=== PATIENT | male | born 1930 | race Caucasian/White ===

== ENCOUNTER 2016-07-17 15:23 | Emergency (ER) | payer OTHER ==
--- NOTE | ~2016-07-17 | CR72 ---
[facility] A Service of [facility] & [facility] RADIOLOGY TEXT RESULTS PATIENT: SERGIO LOONEY LOCATION: [facility] : [birth year] UNIT #: [id number] AGE: [address]: Kayla Malagon MD SEX: M ORDER DR: [id number] [facility] [address] [place], [place] [address] [id number] MR#: [id number] Acc #: [id number] NAME: SERGIO LOONEY. : 1930 SEX: M STUDY DATE/TIME: 07/17/2016 15:47 UNIT: [facility] ROOM: STUDY DESCRIPTION: CR Chest Single View Portable Attending Physician: Kayla Malagon M.D. Ordering Physician: Kayla Malagon M.D. Primary Care Physician: Kristie Zarco M.D. MEDICAL IMAGING REPORT This report is preliminary unless electronic signature is present EXAM Portable chest 07/17/2016 HISTORY 85-year-old male with chest pain radiating to the left arm beginning yesterday. COMPARISON STUDIES None FINDINGS Frontal chest demonstrates mild elevation right hemidiaphragm. Lungs are otherwise clear. Heart size is upper limits. Mediastinum and pulmonary vasculature unremarkable. Median sternotomy wires. IMPRESSION No acute cardiopulmonary findings. Dictated by... Chuck Hsu M.D. THIS IS AN ELECTRONICALLY VERIFIED REPORT Chuck Hsu M.D. at 07/18/2016 5:01 PM Griffin TD: 07/17/2016 17:34 JOB #: [id number] MEDICAL IMAGING REPORT Page 1 of 1 COPY
--- NOTE | ~2016-07-17 | EKG ---
PATIENT: SERGIO LOONEY UNIT #: [id number] Ventricular Rate: 60 BPM Atrial Rate: 60 BPM P-R Interval: 172 ms QRS Duration: 106 ms Q-T Interval: 412 ms QTC Calculation(Bezet): 412 ms P [place]: 54 degrees Calculated R [place]: 14 degrees Calculated T [place]: 48 degrees Diagnosis Line: Normal sinus rhythm Diagnosis Line: Inferior infarct (cited on or before 09-OCT-2013) Diagnosis Line: Abnormal ECG Diagnosis Line: When compared with ECG of 09-OCT-2013 17:35, Diagnosis Line: No significant change was found Diagnosis Line: Confirmed by WILDER ZHOU MD ([id number]) on 07/18/2016 Diagnosis Line: 5:44:45 AM INTERPRETING MD: WINNIE FRANK
[2016-07-17 14:17] LABS: BASOPHIL% 0.3 % (0-2.5); EOSINOPHIL# 0.2 X10e3 (0-0.7); EOSINOPHIL% 4.2 % (0.0-7.0); HEMATOCRIT 47.5 % (38.0-50.0); HEMOGLOBIN 15.7 gm/dL (13.0-16.0); LYMPHOCYTE# 1.4 X10e3 (1.0-3.5); LYMPHOCYTE% 26.7 % (17.0-45.0); MEAN CELL VOLUME 89.4 FL (83-96); MEAN CORPUSCULAR HEMOGLOBIN 29.6 PG (28-34); MEAN CORPUSCULAR HGB CONC 33.1 g/dL (30-36); MEAN PLATELET VOLUME 7.5 FL (6.5-11.5); MONOCYTE# 0.5 X10e3 (0-1.0); MONOCYTE% 9.8 % (3.0-12.0); PLATELET COUNT 109 X10e3 (140-420); RED BLOOD COUNT 5.31 X10e (3.90-5.60); RED CELL DISTRIBUTION WIDTH 14.5 % (11.0-15.5); WHITE BLOOD COUNT 5.2 X10e3 (4.0-10.5)
[2016-07-17 14:29] LABS: DIFF IND NO
[2016-07-17 14:40] LABS: ALBUMIN SERUM 4.1 g/dL (3.5-5.0); BILIRUBIN, DIRECT 0.1 mg/dL (0.0-0.2); BILIRUBIN,INDIRECT 0.6 mg/dL (0.0-0.9); BILIRUBIN,TOTAL 0.7 mg/dL (0.2-2.0); CALCIUM SERUM 8.8 mg/dL (8.4-10.2); CREATININE SERUM 1.7 mg/dL (0.6-1.4); GLOM FILT RATE Estimated 35.5 mL/min (>60); POTASSIUM 4.2 mmol/L (3.5-5.1); PROTEIN TOTAL SERUM 7.3 g/dL (6.0-8.3)
[~2016-07-17 15:23] MED LIST: ATORVASTATIN CA10 MG PO; CARAFATE1 G PO; LOW DOSE ASPIRI81 M1 PO; PANTOPRAZOLE SO40 MG PO; TOPROL XL100 MG PO; ZYLOPRIM100 MG PO
[2016-07-17 15:34] LABS: POC - CKMB 1.8 ng/mL (0.0-7.9); POC - TROPONIN <0.05 ng/mL (<=0.05)
[2016-07-17 16:28] LABS: POC - CKMB 1.4 ng/mL (0.0-7.9); POC - TROPONIN <0.05 ng/mL (<=0.05)
== END 2016-07-17 16:40 | disposition home or self-care (01) ==
LOC: CED 15:23
PROVIDERS: Emergency Medicine; Student in an Organized Health Care Education/Training Program
DX: R07.89 Other chest pain (principal); I12.9 Hypertensive chronic kidney disease with stage 1 through stage 4 chronic kidney disease, or unspecified chronic kidney disease; N18.9 Chronic kidney disease, unspecified; K21.9 Gastro-esophageal reflux disease without esophagitis; Z88.0 Allergy status to penicillin; Z79.899 Other long term (current) drug therapy; Z87.891 Personal history of nicotine dependence
CPT/HCPCS: 36415; 71010; 80048; 80076; 82553; 84484; 85025; 93005; 99284

== ENCOUNTER 2016-07-21 16:25 | Inpatient (IN) | payer MEDICARE, OTHER ==
--- NOTE | ~2016-07-21 | EKG ---
PATIENT: SERGIO LOONEY UNIT #: [id number] Ventricular Rate: 83 BPM Atrial Rate: 83 BPM P-R Interval: 196 ms QRS Duration: 116 ms Q-T Interval: 392 ms QTC Calculation(Bezet): 460 ms P [place]: 42 degrees Calculated R [place]: 12 degrees Calculated T [place]: 39 degrees Diagnosis Line: Normal sinus rhythm Diagnosis Line: Possible Left atrial enlargement Diagnosis Line: Inferior infarct (cited on or before 09-OCT-2013) Diagnosis Line: Abnormal ECG Diagnosis Line: When compared with ECG of 21-JUL-2016 19:53, Diagnosis Line: Criteria for Septal infarct are no longer Present Diagnosis Line: Nonspecific T wave abnormality, worse in Inferior Diagnosis Line: leads Diagnosis Line: Confirmed by WILDER ZHOU MD ([id number]) on 07/24/2016 Diagnosis Line: 10:14:31 PM INTERPRETING MD: WINNIE FRANK
--- NOTE | ~2016-07-21 | HP ---
Unit #: [id number] #: [id number] Patient: SERGIO LOONEY [id number] [address] [place], [place] [address] [id number] I MR#: [id number] NAME: SERGIO LOONEY. ROOM: 551 Age: 85 Sex: M Admission Date: 07/21/2016 : 1930 Attending Physician: Jesus Hannah M.D. Primary Care Physician: Kristie Zarco M.D. HISTORY AND PHYSICAL CHIEF COMPLAINT Chest pain. HISTORY OF PRESENT ILLNESS Mr. Looney is an 85-year-old white male known to have hypertension and coronary artery disease. In 2002, he underwent three-vessel coronary artery bypass graft surgery and had done reasonably well. His a year and a half ago and he has been responsible for taking care of his household and doing everything at home. He came to the emergency room on 07/17/2016 with chest discomfort which started while he was sitting around at home, described as pressure as pressure and heaviness in the mid sternal area radiating to both sides of the chest associated with dyspnea and mild nausea but he did not have any radiation of the pain to the neck, jaw, back, and there was no associated palpitations, dizziness, lightheadedness, syncope or near syncope. He came to the emergency room where initial lab investigation showed no evidence of an WA and EKG showed no ischemia and was sent home. Yesterday, sitting at home again he had recurrence of this chest discomfort which lasted for 15 to 30 minutes and he became concerned. He took sublingual nitroglycerin with relief of pain. He denied any accompanying palpitations, dizziness, lightheadedness, syncope or near syncope. Patient denies any history of previous WA, stroke, or transient ischemic attacks. He denies any recent diplopia, amaurosis fugax, nocturnal dyspnea, orthopnea, leg edema. There is no history of weight loss, syncope or near syncope. PAST MEDICAL HISTORY 1. No history of diabetes mellitus or hyperlipidemia. 2. No history of previous WA. 3. No history of abdominal aortic aneurysm. PAST SURGICAL HISTORY Previous coronary artery bypass surgery 2002. SOCIAL HISTORY Stopped smoking 30 years ago. FAMILY HISTORY Positive for coronary artery disease. PHYSICAL EXAMINATION GENERAL: Elderly male, well preserved for his age. He is in no acute cardiorespiratory distress. NECK: Both carotids have a normal upstroke without any bruits, there is no ankle edema. There is no jugular venous distention is noted. Unit #: [id number] #: [id number] Patient: SERGIO LOONEY HEART: Apical impulse is palpable in the fifth intercostal space in midclavicular line and is normal, both heart sounds are normal. No rubs or clicks are audible. There is no murmur. LUNGS: Good air entry bilaterally without any rales or rhonchi. ABDOMEN: No hepatosplenomegaly, free fluid, or masses. RECTAL: Not done. NEUROLOGIC: Within normal limits. DIAGNOSTIC STUDIES LABORATORY: Labs done in the emergency room 3 days ago showed normal renal function, normal electrolytes. Cardiac enzymes were normal. IMAGING: Chest x-ray was normal 3 days ago. DIAGNOSES 1. Unstable angina pectoris. 2. 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 3. Paroxysmal atrial fibrillation. 4. Status post three-vessel coronary bypass surgery 2002. PLAN Patient's rhythm strips since admission to the hospital today have shown runs of paroxysmal atrial fibrillation spontaneously converting to normal sinus rhythm. This despite being on beta blockers. I will start small dose of amiodarone to maintain normal sinus rhythm. Because of rest angina pectoris, 14 years post bypass graft surgery, he was advised to consider a cardiac catheterization to which he agrees. Catheterization will be performed on 07/24/2016. Procedure and risks are discussed with him. Dictated by Lizbeth Rosario/dalila TD: 07/21/2016 19:02 JOB #: [id number] HISTORY AND PHYSICAL Page 1 of 1 X Jesus Hannah MD HISTORY AND PHYSICAL
--- NOTE | ~2016-07-21 | CO ---
Unit #: [id number] #: [id number] Patient: SERGIO LOONEY [id number] [address] [place], [place] [address] [id number] I MR#: [id number] NAME: SERGIO LOONEY. ROOM: 551 Age: 86 Sex: M Admission Date: 07/21/2016 : 1930 Attending Physician: Jesus Hannah M.D. Primary Care Physician: Kristie Zarco M.D. Consultation Date: 07/22/2016 CONSULTATION REPORT REASON FOR CONSULTATION Chronic kidney disease. HISTORY OF PRESENT ILLNESS Mr. Looney is a very pleasant 85-year-old gentleman, who presented to the hospital with chest pain and has been found to have unstable angina. He has known history of coronary artery disease, having undergone a CABG back in 2002. He also has some underlying hypertension. He does see his primary care doctor regularly, but has never been told of any kidney problems. He denies any urinary complaints. There are no issues with swelling or shortness of breath. His chest pain is gone. He does not use any NSAIDs at home. He has no history of kidney stones. He feels quite well this afternoon. PAST MEDICAL HISTORY Significant for coronary artery disease, chronic kidney disease, GERD, hyperlipidemia, hyperuricemia. PAST SURGICAL HISTORY He has had a CABG. CURRENT MEDICATIONS Baby aspirin daily, metoprolol tartrate 50 mg twice a day, nitroglycerin ointment, Lovenox 80 mg subcu every 12 hours, allopurinol 100 mg, Lipitor 20 mg at bedtime, Protonix 40 mg a day, sucralfate 2 g every evening, and amiodarone 200 mg a day. ALLERGIES He has a coded allergy to penicillin. FAMILY HISTORY Significant for family history of coronary artery disease. There is no family history of kidney problems or dialysis. SOCIAL HISTORY The patient quit smoking many years ago. There is no alcohol or drug abuse. REVIEW OF SYSTEMS A complete 12-point review of systems was completed with the above findings. In addition, he denies any headaches or dizziness. No nosebleed, sore throat, or earache. No palpitations. No cough or hemoptysis. No nausea or vomiting. No diarrhea. No bright red blood per rectum or melena. No dysuria. No hematuria. No rashes. No itching. No Unit #: [id number] #: [id number] Patient: SERGIO LOONEY flank pain. No fevers. No chills. No night sweats or hot flashes. No intolerance to heat or cold. No bleeding issues. No recent weight changes. Unless otherwise indicated, the review of systems was negative. PHYSICAL EXAMINATION VITAL SIGNS: The patient is afebrile, pulse 60, respiratory rate 18, and blood pressure 121/57. GENERAL: This is a pleasant 85-year-old male, sitting up in a chair, alert in no distress. HEENT: Head is atraumatic and normocephalic. Eyes show pink conjunctivae with no scleral icterus. No nasal drainage or nosebleed. Oropharynx is moist. No thrush. NECK: No rigidity. No JVD. HEART: Regular rate and rhythm with no murmurs, gallops, or rubs appreciated. LUNGS: Clear with no wheezing or rhonchi. Breathing is nonlabored. ABDOMEN: Soft, nontender, and nondistended. Bowel sounds are present. No abdominal bruits heard. EXTREMITIES: No lower extremity clubbing, cyanosis, or edema. SKIN: Dry with no rashes. MUSCULOSKELETAL: No CVA tenderness to palpation. NEUROLOGIC: No gross neurologic deficits. LYMPHATICS: There is no neck or cervical lymphadenopathy. PSYCHIATRIC: Mood and affect appear normal. DIAGNOSTIC STUDIES LABORATORY RESULTS: Cholesterol readings are good. Chemistry yesterday noteworthy for a creatinine of 1.7. CK was 66. Troponin less than 0.03. CBC was remarkable only for a slightly elevated hemoglobin of 16.5, platelet count was slightly low at 128. On the 07/17/2016, his creatinine was 1.7 as well with a normal albumin. CBC showed a low platelet count of 109 at that time as well. Prior to that, creatinine going all the way back to 2013, ran between 1.6 and 1.8. Previous urinalysis in September 2013 was negative for blood and protein. IMAGING STUDIES: Chest x-ray was read as negative. I did find an abdominal ultrasound from 09/2013, that showed an 8.6 cm right kidney, 9.7 cm left kidney, and a 2-cm cyst on the left. He also had a CT angiogram of his abdomen in September of 2013. There was also seen an exophytic 2-cm cyst on the left kidney, and they did do an arteriogram, showing bilateral single renal arteries with mild disease. ASSESSMENT AND PLAN 1. Chronic kidney disease, stage 3. This looks to be long-standing and stable. With his previous plain urinalysis, I suspect this is related to hypertensive nephrosclerosis and small vessel atherosclerotic disease. I will be checking a urinalysis for evaluation as well as checking his phosphorus and parathyroid hormone levels. He should be okay for heart catheterization on Sunday, and I will start some Mucomyst in the morning, and we will do a fluid prep overnight. 2. Hypertension. The patient's blood pressure is reasonable at this time on his Toprol, which we will continue. 3. Hyperuricemia. I will be checking a uric acid level to be sure he needs to stay on his allopurinol considering his thrombocytopenia. 4. History of coronary artery disease with previous coronary artery bypass graft and unstable angina with catheterization planned for Sunday. 5. History of paroxysmal atrial fibrillation, now in sinus. Unit #: [id number] #: [id number] Patient: SERGIO LOONEY We would like to thank Dr. Hannah for this consult and the opportunity to participate in evaluation and care of Mr. Looney. Dictated by... Tarun Cagle Jr., MJair. SABRINA/gisela TD: 07/23/2016 04:20 JOB #: [id number] CONSULTATION REPORT Page 1 of 1 X Tarun Cagle MD X CONSULTATION REPORT
--- NOTE | ~2016-07-21 | EKG ---
PATIENT: SERGIO LOONEY UNIT #: [id number] Ventricular Rate: 82 BPM Atrial Rate: 82 BPM P-R Interval: 176 ms QRS Duration: 112 ms Q-T Interval: 366 ms QTC Calculation(Bezet): 427 ms P [place]: 33 degrees Calculated R [place]: 3 degrees Calculated T [place]: 53 degrees Diagnosis Line: Normal sinus rhythm Diagnosis Line: Possible Left atrial enlargement Diagnosis Line: Non-specific intra-ventricular conduction delay Diagnosis Line: Inferior infarct (cited on or before 09-OCT-2013) Diagnosis Line: Abnormal ECG Diagnosis Line: When compared with ECG of 17-JUL-2016 13:32, Diagnosis Line: No significant change was found Diagnosis Line: Confirmed by AMINAH ORNELAS MD ([id number]) on Diagnosis Line: 07/22/2016 6:54:10 AM INTERPRETING MD: SARAH
--- NOTE | ~2016-07-21 | US77 ---
[facility] A Service of [facility] RADIOLOGY TEXT RESULTS PATIENT: SERGIO LOONEY LOCATION: [facility] 53 : [birth year] UNIT #: [id number] AGE: [address]: Jesus Hannah MD SEX: M ORDER DR: [id number] [facility] [address] [place], [place] [address] [id number] I MR#: [id number] #: [id number] NAME: SERGIO LOONEY. : 1930 SEX: M STUDY DATE/TIME: 07/25/2016 8:39 UNIT: [facility] ROOM: [facility] STUDY DESCRIPTION: US Kidney Bilateral Complete Attending Physician: Jesus Hannah M.D. Ordering Physician: Tarun Cagle Jr., M.D. Primary Care Physician: Kristie Zarco M.D. MEDICAL IMAGING REPORT This report is preliminary unless electronic signature is present EXAM Renal ultrasound. DATE OF EXAM 07/25/2016 HISTORY Chronic kidney disease, stage 3. Abnormal renal function tests today. Elevated BUN 22, elevated creatinine of 1.8, abnormally low GFR of 32.9. FINDINGS The right kidney measures 8.8 cm, while the left kidney measures 9.9 cm in longitudinal dimensions. There is no evidence of hydronephrosis or nephrolithiasis. There are bilateral renal cysts. No solid mass lesions are identified. There is normal renal cortical echogenicity. Images of the bladder are normal. IMPRESSION 1. Bilateral renal cysts. No evidence of hydronephrosis. 2. Images of the bladder are normal. Dictated by... Jeffrey Peters M.D. THIS IS AN ELECTRONICALLY VERIFIED REPORT Jeffrey Peters M.D. at 07/26/2016 8:04 AM LIZ/natalio TD: 07/25/2016 17:17 [facility] A Service of [facility] RADIOLOGY TEXT RESULTS PATIENT: SERGIO LOONEY LOCATION: [facility] : [birth year] UNIT #: [id number] AGE: [address]: Jesus Hannah MD SEX: M ORDER DR: JOB #: [id number] MEDICAL IMAGING REPORT Page 1 of 1 COPY
--- NOTE | ~2016-07-21 | DS ---
Unit #: [id number] #: [id number] Patient: SERGIO LOONEY [id number] [facility] [address] [place], [place] [address] [id number] I MR#: [id number] NAME: SERGIO LOONEY. ROOM: 551 Age: 86 Sex: M Admission Date: 07/21/2016 : 1930 Discharge Date: 07/25/2016 Attending Physician: Jesus Hannah M.D. Primary Care Physician: Kristie Zarco M.D. DISCHARGE SUMMARY DISCHARGE DIAGNOSES 1. Chest pain with initial concern for unstable angina, ruled out for myocardial infarction. 2. Coronary artery disease, status post left cardiac catheterization on July 24, [address] [facility] [address] Hannah. Revealed left main normal. Proximal left anterior descending coronary artery 100%. Left circumflex normal. Right coronary artery 100%. Left internal mammary artery to the left anterior descending coronary artery patent with distal vessel normal. Saphenous vein graft to diagonal patent with distal vessel normal. Saphenous vein graft to distal right coronary artery patent with distal vessel normal. No left ventriculogram due to renal function. Medical management. 3. A 2D echocardiogram, January 14, 2015, revealed an ejection fraction of 50% to 55%. Mild asymmetric left ventricular hypertrophy. Impaired left ventricular relaxation. Mild mitral annular calcification. Mild mitral regurgitation. Mild tricuspid regurgitation. Right ventricular systolic pressure 40-50 mmHg consistent with indmobeg-wi-kakojo pulmonary hypertension. Aortic valve leaflet sclerotic with no stenosis. No pericardial effusion. 4. Coronary artery disease with history of coronary artery bypass grafting x3 in 2000. 5. Hypertension. 6. Hyperlipidemia. 7. Chronic kidney disease. 8. Gastroesophageal reflux disease. 9. History of gout. 10. Chronic thrombocytopenia. 11. Paroxysmal atrial fibrillation, now in sinus rhythm. 12. Nonsustained ventricular tachycardia, four beats. The patient was started on Xarelto after the cardiac catheterization due to episodes of paroxysmal atrial fibrillation. The cost of Xarelto has been checked with renal case manager and is affordable. DISCHARGE MEDICATIONS 1. Flomax 0.4 mg p.o. daily. 2. Amiodarone 200 mg p.o. daily. 3. Metoprolol tartrate 50 mg p.o. b.i.d. 4. Lipitor 20 mg p.o. nightly. 5. Carafate 1 g p.o. daily with 2 g p.o. in the evening. 6. Allopurinol per home dosing. 7. Aspirin 81 mg p.o. daily. 8. Protonix per home dosing. Unit #: [id number] #: [id number] Patient: SERGIO LOONEY 9. Imdur ER 30 mg p.o. daily. 10. Nitroglycerin 0.4 mg sublingual every five minutes x3 p.r.n. for chest pain. 11. Xarelto 15 mg p.o. daily. DIAGNOSTIC STUDIES LABORATORY: White blood cell count 5, hemoglobin 14.4, hematocrit 43.7, platelets 123,000. Sodium 139, potassium 4.1, chloride 103, CO2 of 28, BUN 28, creatinine 2.1, glucose 83. Troponin 0.03 and 0.03. Total cholesterol 120, triglycerides 111, LDL 59, HDL 39. UA with 5-10 red blood cells, otherwise negative. IMAGING: Chest x-ray reveals no acute findings. Ultrasound of bilateral kidneys reveal bilateral renal cyst. No evidence of hydronephrosis. Images of the bladder normal. [employer] Dr. Cagle with nephrology. PHYSICAL EXAMINATION VITAL SIGNS: Temperature 98.7, pulse 72, blood pressure 119/75. CONSTITUTIONAL: This is an 85-year-old white male in no acute distress. SKIN: Warm and dry. NECK: Supple. No jugular vein distention. No hepatojugular reflux. Normal carotid upstrokes. No carotid bruits auscultated. HEART: S1, S2. Regular rate and rhythm. No murmurs, rubs, or gallops. LUNGS: Bilateral breath sounds have good air entry through all lung renteria. Respirations even and nonlabored. No rales, rhonchi, or wheezes. ABDOMEN: Soft, nontender, nondistended. Positive bowel sounds auscultated x4 quadrants. No ascites noted. EXTREMITIES: Bilateral lower extremities have no pretibial pitting edema. DP and PT pulses 2+. Capillary refill less than 3 seconds. Calf site is soft without hematoma. DISCHARGE INSTRUCTIONS 1. The patient will be discharged home today. 2. Followup with Dr. Hannah on January 23, 2017 at 1:15 p.m. 3. Followup with primary care provider in one to two weeks. 4. Followup with nephrology in two to four weeks. 5. Post cath instructions provided. 6. The patient has been advised to call our office with further symptoms. 7. He has been started on oral amiodarone to help maintain sinus rhythm and his beta saskia has been adjusted. The cost of Xarelto has been approved and initiated. Dictated by... Nancy Hernandez APRN for Lizbeth Rosario TD: 07/27/2016 11:12 JOB #: [id number] Unit #: [id number] #: [id number] Patient: SERGIO LOONEY DISCHARGE SUMMARY Page 1 of 1 X X DISCHARGE SUMMARY
[2016-07-21] MEDS ORDERED: TOPROL XL (17:25)
[2016-07-21] MEDS ORDERED: ZYLOPRIM PO (17:25)
[2016-07-21] MEDS ORDERED: CARAFATE PO (17:25)
[2016-07-21] MEDS ORDERED: LIPITOR PO (17:25)
[2016-07-21] MEDS ORDERED: PROTONIX (17:25)
[2016-07-21 20:05] LABS: BASOPHIL% 0.2 % (0-2.5); EOSINOPHIL# 0.2 X10e3 (0-0.7); EOSINOPHIL% 2.6 % (0.0-7.0); HEMATOCRIT 49.3 % (38.0-50.0); HEMOGLOBIN 16.5 gm/dL (13.0-16.0); LYMPHOCYTE# 1.8 X10e3 (1.0-3.5); LYMPHOCYTE% 21.7 % (17.0-45.0); MEAN CELL VOLUME 88.9 FL (83-96); MEAN CORPUSCULAR HEMOGLOBIN 29.8 PG (28-34); MEAN CORPUSCULAR HGB CONC 33.5 g/dL (30-36); MEAN PLATELET VOLUME 7.4 FL (6.5-11.5); MONOCYTE% 12.4 % (3.0-12.0); NEUTROPHIL# 5.3 X10e3 (1.5-7.1); NEUTROPHIL% 63.1 % (40-75); PLATELET COUNT 128 X10e3 (140-420); RED BLOOD COUNT 5.54 X10e (3.90-5.60); RED CELL DISTRIBUTION WIDTH 14.1 % (11.0-15.5); WHITE BLOOD COUNT 8.4 X10e3 (4.0-10.5)
[2016-07-21 20:07] LABS: DIFF IND NO
[2016-07-21 20:36] LABS: BUN/CREATININE RATIO 10.58; CALCIUM SERUM 8.4 mg/dL (8.4-10.2); CREATININE SERUM 1.7 mg/dL (0.6-1.4); GLOM FILT RATE Estimated 35.5 mL/min (>60); MAGNESIUM 2.2 mg/dL (1.6-3.0)
[2016-07-21 20:54] LABS: %MB 4.7 % (0.0-4.0); MB 3.1 ng/ml
[2016-07-22 07:28] LABS: CHOLESTEROL 120 mg/dL (0-200); HDL CHOLESTEROL 39 mg/dL (29-75); LDL CHOLESTEROL 59 mg/dL ([, -130]); LDL/HDL RATIO 2 RATIO (0-4); TRIGLYCERIDES 111 mg/dL (10-160)
[2016-07-22 21:30] LABS: URINE BILIRUBIN NEG (NEG); URINE BLOOD TRACE (NEG); URINE COLOR DK YELLOW; URINE GLUCOSE NEG (NEG); URINE KETONE TRACE (NEG); URINE LEUKOCYTE ESTERASE NEG (NEG); URINE NITRATE NEG (NEG); URINE PROTEIN NEG (NEG); URINE SPECIFIC GRAVITY 1.022 (1.003-1.035)
[2016-07-22 21:32] LABS: URINE BACTERIA AUWI NEG (NEGATIVE); URINE SQUAMOUS EPITHELIAL CELL NONE SEEN /[HPF]; UWBCS1 AUWI 0-2 (0-5)
[2016-07-23 06:56] LABS: BUN/CREATININE RATIO 12.63; CALCIUM SERUM 8.7 mg/dL (8.4-10.2); CREATININE SERUM 1.9 mg/dL (0.6-1.4); GLOM FILT RATE Estimated 30.8 mL/min (>60); PHOSPHOROUS 2.9 mg/dL (2.5-4.6); POTASSIUM 3.9 mmol/L (3.5-5.1); URIC ACID 5.1 mg/dL (2.6-7.2)
[2016-07-24 05:12] LABS: HEMATOCRIT 43.7 % (38.0-50.0); HEMOGLOBIN 14.4 gm/dL (13.0-16.0); MEAN CELL VOLUME 89.2 FL (83-96); MEAN CORPUSCULAR HEMOGLOBIN 29.4 PG (28-34); MEAN CORPUSCULAR HGB CONC 32.9 g/dL (30-36); MEAN PLATELET VOLUME 7.5 FL (6.5-11.5); RED BLOOD COUNT 4.9 X10e (3.90-5.60); RED CELL DISTRIBUTION WIDTH 14.1 % (11.0-15.5)
[2016-07-24 05:23] LABS: INR 1.1; PARTIAL THROMBOPLASTIN TIME 43.4 SECONDS (23.5-31.3); PROTHROMBIN TIME (PATIENT) 11.7 SECONDS (9.6-11.5)
[2016-07-24 06:42] LABS: BUN/CREATININE RATIO 13.33; CALCIUM SERUM 8.5 mg/dL (8.4-10.2); CREATININE SERUM 2.1 mg/dL (0.6-1.4); GLOM FILT RATE Estimated 27.3 mL/min (>60); POTASSIUM 4.1 mmol/L (3.5-5.1)
[2016-07-25 11:00] LABS: BUN/CREATININE RATIO 12.22; CALCIUM SERUM 8.5 mg/dL (8.4-10.2); CREATININE SERUM 1.8 mg/dL (0.6-1.4); GLOM FILT RATE Estimated 32.9 mL/min (>60); POTASSIUM 4.7 mmol/L (3.5-5.1)
[2016-07-25] MEDS ORDERED: ASPIRIN81 M2 PO (13:03)
[2016-07-25] MEDS ORDERED: IMDUR-ER30 MG PO (13:03)
[2016-07-25] MEDS ORDERED: NITROSTAT0.4 MG SL (13:04)
[2016-07-25] MEDS ORDERED: XARELTO15 MG PO (13:05)
[2016-07-25] MEDS ORDERED: FLOMAX0.4 M1 PO (13:08)
[2016-07-25] MEDS ORDERED: AMIODARONE HCL200 MG PO (13:08)
== END 2016-07-25 15:56 | disposition home or self-care (01) | DRG 287 ==
LOC: C5B 16:25
PROVIDERS: Internal Medicine Cardiovascular Disease; Internal Medicine Nephrology; Nurse Practitioner
PROC: 4A023N7 Measurement of Cardiac Sampling and Pressure, Left Heart, Percutaneous Approach (ICD-10-PCS; principal; 2016-07-24)
PROC: B2111ZZ Fluoroscopy of Multiple Coronary Arteries using Low Osmolar Contrast (ICD-10-PCS; 2016-07-24)
PROC: B2151ZZ Fluoroscopy of Left Heart using Low Osmolar Contrast (ICD-10-PCS; 2016-07-24)
DX: I20.0 Unstable angina (principal); I47.2 Ventricular tachycardia; I48.0 Paroxysmal atrial fibrillation; N18.3 Chronic kidney disease, stage 3 (moderate); D69.6 Thrombocytopenia, unspecified; Z95.1 Presence of aortocoronary bypass graft; I25.10 Atherosclerotic heart disease of native coronary artery without angina pectoris; I12.9 Hypertensive chronic kidney disease with stage 1 through stage 4 chronic kidney disease, or unspecified chronic kidney disease; E78.5 Hyperlipidemia, unspecified; K21.9 Gastro-esophageal reflux disease without esophagitis; E79.0 Hyperuricemia without signs of inflammatory arthritis and tophaceous disease; Z79.82 Long term (current) use of aspirin; Z79.899 Other long term (current) drug therapy
CPT/HCPCS: 76770; 80048; 80061; 81003; 82310; 82550; 82553; 83735; 83970; 84100; 84484; 84550; 85025; 85027; 85610; 85730; 89190; 93005; C1769; C1887; C1894; J1644; J1650; J2250; J3010; J3480

== ENCOUNTER → 2016-08-07 | Outpatient (CLI) | payer MEDICARE, OTHER ==
[~2016-08-07] MED LIST changes: +AMIODARONE HCL200 MG PO; +ASPIRIN81 M2 PO; +CARAFATE PO; +FLOMAX0.4 M1 PO; +IMDUR-ER30 MG PO; +LIPITOR PO; +NITROSTAT0.4 MG SL; +PROTONIX; +TOPROL XL; +XARELTO15 MG PO; +ZYLOPRIM PO
[2016-08-07 10:32] LABS: BUN/CREATININE RATIO 10.5; CALCIUM SERUM 8.7 mg/dL (8.4-10.2); GLOM FILT RATE Estimated 28.9 mL/min (>60); POTASSIUM 4.6 mmol/L (3.5-5.1)
== END | disposition home or self-care (01) ==
LOC: CLAB 09:28
PROVIDERS: Internal Medicine Cardiovascular Disease
DX: R94.4 Abnormal results of kidney function studies (principal)
CPT/HCPCS: 36415; 80048

== ENCOUNTER → 2016-11-27 | Outpatient (CLI) | payer MEDICARE, OTHER ==
--- NOTE | ~2016-11-27 | CR63 ---
[facility] A Service of [facility] & [facility] RADIOLOGY TEXT RESULTS PATIENT: SERGIO LOONEY LOCATION: [facility] : [birth year] UNIT #: [id number] AGE: [address]: Kristie Zarco MD SEX: M ORDER DR: [id number] [facility] [address] [place], [place] [address] [id number] O MR#: [id number] Acc #: [id number] NAME: SERGIO LOONEY : 1930 SEX: M STUDY DATE/TIME: 11/27/2016 10:04 UNIT: [facility] ROOM: STUDY DESCRIPTION: CR Chest 2 View Attending Physician: Kristie Zarco M.D. Ordering Physician: Kristie Zarco M.D. Primary Care Physician: Kristie Zarco M.D. MEDICAL IMAGING REPORT This report is preliminary unless electronic signature is present EXAM Chest 2 views 11/27/2016 1004 hours HISTORY 86-year-old man with history of hemoptysis for 3 days. COMPARISON 07/17/2016 FINDINGS Upright PA and lateral views of the chest demonstrate prior median sternotomy and CABG change with normal heart size and mildly tortuous aorta. There is mild pulmonary venous distension with airspace change in the right lower lobe, new from prior study. This airspace change could be related to pneumonia, edema or pulmonary parenchymal hemorrhage. There is no pleural effusion. 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 IMPRESSION 1. There is right lower lobe airspace density, new from 07/17/2016. This could be related to pneumonia, hemorrhage or focal edema. 2. There is no pleural effusion or pneumothorax. 3. There is colon interposed between the liver and right hemidiaphragm, unchanged from prior exam. STAT * RESULT Dictated by... Ara Donis M.D. THIS IS AN ELECTRONICALLY VERIFIED REPORT Ara Donis M.D. at 11/27/2016 2:32 PM [facility] A Service of [facility] & [facility] RADIOLOGY TEXT RESULTS PATIENT: SERGIO LOONEY LOCATION: [facility] #: [id number] : [birth year] UNIT #: [id number] AGE: [address]: Kristie Zarco MD SEX: M ORDER DR: FUNMILAYO/tristen TD: 11/27/2016 10:37 JOB #: [id number] MEDICAL IMAGING REPORT Page 1 of 1 COPY
== END | disposition home or self-care (01) ==
LOC: CRAD 09:44
DX: R04.2 Hemoptysis (principal); J98.4 Other disorders of lung; K63.89 Other specified diseases of intestine
CPT/HCPCS: 71020

== ENCOUNTER → 2016-11-28 | Outpatient (CLI) | payer MEDICARE, OTHER ==
--- NOTE | ~2016-11-28 | CT57 ---
[facility] A Service of [facility] & [facility] RADIOLOGY TEXT RESULTS PATIENT: SERGIO LOONEY LOCATION: [facility] : [birth year] UNIT #: [id number] AGE: [address]: Kristie Zarco MD SEX: M ORDER DR: [id number] [address] [address] [id number] MR#: [id number] #: [id number] NAME: SERGIO LOONEY. : 1930 SEX: M STUDY DATE/TIME: 11/28/2016 10:13 UNIT: [facility] ROOM: STUDY DESCRIPTION: CT Chest Wo Cont Attending Physician: Kristie Zarco M.D. Referring Physician: Kristie Zaroc M.D. Ordering Physician: Kristie Zarco M.D. Primary Care Physician: Kirstie Zarco M.D. MEDICAL IMAGING REPORT This report is preliminary unless electronic signature is present. EXAM CT chest without contrast, 11/28/2016 10:13 hours HISTORY 86-year-old man with complaint of hemoptysis since 11/25/2016. History of heart disease, hypertension. COMPARISON CT angiogram abdomen and runoff 10/11/2013 and chest x-ray 11/27/2016. TECHNIQUE Helical noncontrasted images were obtained from the thoracic inlet through the adrenal glands. Sagittal and coronal reconstructions were performed. Total exam DLP 791 mGy-cm. This CT exam was performed with one or more of the following radiation dose reduction techniques: automatic exposure control, adjustment of mA and/or kV according to patient size, and iterative reconstruction. FINDINGS Images through the thoracic inlet demonstrate no thyroid lesion or supraclavicular adenopathy. Images through the chest demonstrate a tortuous aorta with prior CABG change. There is diffuse, coarse coronary artery calcification. Cardiac chambers and pericardium are normal. There are benign calcified right paratracheal, right suprahilar, right hilar, right infrahilar and subcarinal lymph nodes consistent with old granulomatous change. No pathologic noncalcified nodes are seen. The lungs demonstrate underlying [id number] centrilobular emphysema. There is ground-glass as well as reticulonodular airspace change involving the inferior aspect of the right upper lobe, the right middle lobe and the STS. [facility] A Service of [facility] RADIOLOGY TEXT RESULTS PATIENT: SERGIO LOONEY LOCATION: [facility] : [birth year] UNIT #: [id number] AGE: [address]: Kristie Zarco MD SEX: M ORDER DR: right lower lobe most likely representing acute airspace pneumonia. Hemorrhage in the lungs could have this appearance as well. The left lung is clear of acute density. There is trace pleural fluid on the right. IMPRESSION 1. Abnormal chest CT confirming the presence of ground-glass and slightly nodular airspace changes in the right lung with involvement of the inferior aspect of the right upper lobe, right middle lobe and right lower lobe. The findings favor diffuse pneumonia although diffuse pulmonary hemorrhage could have this appearance. There is trace right pleural effusion. The left lung is clear and there is no left effusion. 2. There are benign calcified mediastinal and hilar nodes but no pathologic adenopathy. Suggest followup chest x-ray to complete resolution of the pulmonary parenchymal changes. Dictated by... Ara Donis M.D. THIS IS AN ELECTRONICALLY VERIFIED REPORT Ara Donis M.D. at 11/28/2016 5:27 PM Raimundo TD: 11/28/2016 15:36 JOB #: [id number] MEDICAL IMAGING REPORT Page 1 of 1
== END | disposition home or self-care (01) ==
LOC: SCT 09:38
DX: R04.2 Hemoptysis (principal); J98.4 Other disorders of lung; R93.8 Abnormal findings on diagnostic imaging of other specified body structures
CPT/HCPCS: 71250